=== PATIENT | female | born 1985 | race African-American/Black ===

== ENCOUNTER 2021-07-02 19:09 | Emergency (ER) | payer OTHER ==
[2021-07-02] MEDS ORDERED: Amoxicillin/Potassium Clav 875 MG TAB ONE (20:33)
[2021-07-02] MEDS ORDERED: Ibuprofen 800 MG TAB ONE (20:33)
== END 2021-07-02 20:38 | disposition home or self-care (01) ==
LOC: MADERS 19:09
DX: K02.9 Dental caries, unspecified (principal); K05.10 Chronic gingivitis, plaque induced; Z79.899 Other long term (current) drug therapy
CPT/HCPCS: 99282

== ENCOUNTER 2021-07-22 17:44 | Emergency (ER) | payer OTHER, SELFPAY | END 2021-07-22 18:44 | disposition home or self-care (01) | LOC: MADERS 17:44 | DX: K02.9 Dental caries, unspecified (principal); H61.22 Impacted cerumen, left ear; Z79.899 Other long term (current) drug therapy | CPT/HCPCS: 94760; 99282 ==

== ENCOUNTER 2021-10-17 10:02 | Emergency (ER) | payer MEDICAID, SELFPAY ==
[2021-10-17] MEDS ORDERED: traMADol HCl 50 MG TAB ONE (11:06)
[2021-10-17] MEDS ORDERED: Silver Sulfadiazine 50 GM TUBE ONE (11:06)
[2021-10-17] MEDS ORDERED: Ibuprofen 800 MG TAB ONE (11:08)
[2021-10-17] MEDS ORDERED: Amoxicillin/Potassium Clav 875 MG TAB ONE (11:08)
== END 2021-10-17 11:37 | disposition home or self-care (01) ==
LOC: MADERS 10:02
DX: K04.7 Periapical abscess without sinus (principal); K02.9 Dental caries, unspecified; K03.81 Cracked tooth; Z87.891 Personal history of nicotine dependence
CPT/HCPCS: 99282

== ENCOUNTER 2021-11-01 11:29 | Emergency (ER) | payer MEDICAID, SELFPAY | END 2021-11-01 12:06 | disposition home or self-care (01) | LOC: MADERS 11:29 | DX: B34.9 Viral infection, unspecified (principal); Z87.891 Personal history of nicotine dependence; Z79.899 Other long term (current) drug therapy | CPT/HCPCS: 99283 ==

== ENCOUNTER 2021-11-06 12:45 | Emergency (ER) | payer MEDICAID, OTHER | END 2021-11-06 13:54 | disposition home or self-care (01) | LOC: MADERS 12:45 | DX: R05.9 Cough, unspecified (principal); I10 Essential (primary) hypertension; Z87.891 Personal history of nicotine dependence; Z79.899 Other long term (current) drug therapy | CPT/HCPCS: 99283 ==

== ENCOUNTER 2022-02-16 16:22 | Emergency (ER) | payer MEDICAID, OTHER ==
[2022-02-16] MEDS ORDERED: Lidocaine 1% w/Epinephrine 1:100K 20 ML VIAL ONE (16:43)
== END 2022-02-16 17:00 | disposition home or self-care (01) ==
LOC: MADERS 16:22
DX: L02.411 Cutaneous abscess of right axilla (principal); I10 Essential (primary) hypertension; Z87.891 Personal history of nicotine dependence; Z79.899 Other long term (current) drug therapy
CPT/HCPCS: 10060

== ENCOUNTER 2022-07-10 18:03 | Emergency (ER) | payer BC, OTHER ==
[2022-07-10] MEDS ORDERED: Amoxicillin/Potassium Clav 875 MG TAB ONE (18:50)
== END 2022-07-10 18:56 | disposition home or self-care (01) ==
LOC: MADERS 18:03
DX: J01.90 Acute sinusitis, unspecified (principal); H66.93 Otitis media, unspecified, bilateral; Z87.891 Personal history of nicotine dependence
CPT/HCPCS: 99283

== ENCOUNTER 2022-11-05 17:46 | Emergency (ER) | payer OTHER ==
[2022-11-05] MEDS ORDERED: Amoxicillin/Potassium Clav 875 MG TAB ONE (18:14)
[2022-11-05] MEDS ORDERED: Acetaminophen 500 MG TAB ONE (18:14)
== END 2022-11-05 18:19 | disposition home or self-care (01) ==
LOC: MADERS 17:46
DX: K04.7 Periapical abscess without sinus (principal); K02.9 Dental caries, unspecified; K05.00 Acute gingivitis, plaque induced; I10 Essential (primary) hypertension; Z87.891 Personal history of nicotine dependence; Z79.899 Other long term (current) drug therapy
CPT/HCPCS: 99282

== ENCOUNTER 2022-12-28 12:47 | Emergency (ER) | payer OTHER | END 2022-12-28 13:49 | disposition home or self-care (01) | LOC: MADERS 12:47 | DX: J06.9 Acute upper respiratory infection, unspecified (principal); I10 Essential (primary) hypertension; E66.9 Obesity, unspecified; Z87.891 Personal history of nicotine dependence; Z79.899 Other long term (current) drug therapy | CPT/HCPCS: 99283 ==

== ENCOUNTER 2023-07-25 14:40 | Emergency (ER) | payer OTHER | END 2023-07-25 15:08 | disposition home or self-care (01) | LOC: MADERS 14:40 | DX: K08.89 Other specified disorders of teeth and supporting structures (principal); I10 Essential (primary) hypertension; Z87.891 Personal history of nicotine dependence | CPT/HCPCS: 99282 ==

== ENCOUNTER 2023-11-01 22:36 | Emergency (ER) | payer OTHER ==
[2023-11-01] MEDS ORDERED: Bupivacaine PF 0.5% 30 ML VIAL ONE (22:48)
[2023-11-01] MEDS ORDERED: Penicillin V Potassium 250 MG TAB ONE (23:07)
== END 2023-11-01 23:05 | disposition home or self-care (01) ==
LOC: MADERS 22:36
DX: K04.7 Periapical abscess without sinus (principal); K08.89 Other specified disorders of teeth and supporting structures; I10 Essential (primary) hypertension; Z87.891 Personal history of nicotine dependence
CPT/HCPCS: 99282; J0665

== ENCOUNTER 2025-01-25 13:53 | Emergency (ER) | payer OTHER | END 2025-01-25 16:20 | disposition home or self-care (01) | LOC: MADERS 13:53 | DX: J06.9 Acute upper respiratory infection, unspecified (principal); I10 Essential (primary) hypertension; Z87.891 Personal history of nicotine dependence | CPT/HCPCS: 87428; 99283 ==